=== PATIENT | female | born 1950 | race Caucasian/White ===

== ENCOUNTER → 2019-03-21 09:57 | Outpatient (CLI) | payer OTHER, SELFPAY ==
[2019-03-21 11:23] LABS: Alanine Aminotransferase 19 IU/L (9-52); Albumin 4.9 g/dL (3.5-5.0); Albumin Globulin Ratio 1.6 (1.0-2.8); Alkaline Phosphatase 65 U/L (38-126); Aspartate Aminotransferase 26 IU/L (14-36); Bilirubin Total 0.5 mg/dL (0.2-1.3); Bilirubin Unconjugated 0.3 mg/dL (0.0-1.1); Cholesterol 210 mg/dL (140-199); HDL Cholesterol 71 mg/dL (40-60); HEMOLYSIS < 15 (0-50); LDL Cholesterol Calculated 117 mg/dL (<100); Total Protein 7.9 g/dL (6.3-8.2); Triglycerides 109 mg/dL (35-150)
== END ==
PROVIDERS: Visit Provider Nurse Practitioner
DX: E78.5 Hyperlipidemia, unspecified (principal); Z79.899 Other long term (current) drug therapy
CPT/HCPCS: 36415; 80061; 80076

== ENCOUNTER → 2019-07-12 12:46 | Outpatient (CLI) | payer OTHER, SELFPAY ==
--- NOTE | 2019-07-12 12:50 | DI.NM.S_ITS ---
PROCEDURE: NM HIDA WITH CCK PHARMACEUTICAL: 5.2 mCi Tc-99m mebrofenin IV; 1.2 mcg CCK IV. INDICATIONS: LLQ pain TECHNIQUE: Following intravenous administration of Tc-99m mebrofenin, sequential anterior abdominal images were obtained. To evaluate the contractile response of the gallbladder in response to Cholecystokinin (CCK), sincalide (0.02 ?g/kg) was administered by slow intravenous infusion approximately 60 minutes after the administration of the radiopharmaceutical. Sequential imaging was continued for 30 minutes after the start of CCK infusion. Gallbladder ejection fraction was calculated. COMPARISON: None. FINDINGS: Biliary scan: There is normal tracer uptake and excretion by the liver. There is normal visualization of the intrahepatic ducts, common bile duct, and gallbladder. There is normal tracer transit into the duodenum. CCK stimulation: There is abnormally reduced contractile response of the gallbladder to CCK infusion. The calculated gallbladder ejection fraction is only 7%; normal values are above 35%. It has been shown that any patient abdominal pain after CCK administration is related to the rate of CCK injection, rather than to any underlying gallbladder disease (Clinical Nuclear Medicine 2012; 37: 63-70. Journal of Nuclear Medicine 2014; 55: 1-9). IMPRESSION: Abnormally reduced gallbladder ejection fraction of only 7% with lower limits of normal at 35%. However, normal hepatocellular uptake and excretion of isotope through the bile ducts is observed. Dictated by: Italo Calderon M.D. on 07/12/2019 at 16:16 Approved by: Italo Calderon M.D. on 07/12/2019 at 16:17
== END ==
PROVIDERS: PCP Nurse Practitioner; Visit Provider Nurse Practitioner
DX: R10.32 Left lower quadrant pain (principal)
CPT/HCPCS: 78227; A9537; J2805

== ENCOUNTER → 2019-08-01 07:30 | Outpatient (CLI) | payer OTHER, SELFPAY ==
[2019-08-01 08:28] LABS: Cholesterol 214 mg/dL (140-199); HDL Cholesterol 66 mg/dL (40-60); LDL Cholesterol Calculated 120 mg/dL (<100); Triglycerides 142 mg/dL (35-150)
== END ==
PROVIDERS: PCP Nurse Practitioner; Visit Provider Nurse Practitioner
DX: E78.5 Hyperlipidemia, unspecified (principal)
CPT/HCPCS: 36415; 80061

== ENCOUNTER 2019-08-08 06:23 | Day surgery (SDC) | payer OTHER, SELFPAY ==
[2019-08-03 13:16] VITALS: BMI 24.7
[2019-08-08] VITALS (12 sets, daily range): BP systolic 112–144; BP diastolic 71–87; PULSE 49–76; RESP 12–24; TEMP 35.8–37.2; O2SAT 93–100; BMI 24.7
--- NOTE | 2019-08-08 | PATH_ITS ---
[facility] Accession Number: [id number] . 01 Material submitted: . gallbladder - GALLBLADDER . 02 Diagnosis: Gallbladder, Cholecystectomy: Minimal chronic cholecystitis. No evidence of neoplasm. MRV 08/10/2019 0949 Local . 02 Electronically signed: . Mk Elkins MD, PhD, Pathologist NPI- [id number] . 01 Gross description: . Received in formalin, labeled gallbladder, is an intact gallbladder (length-7.3 cm, diameter-2.7 cm) with green smooth and shiny serosa and a patent cystic duct. A possible lymph node (0.3 x 0.1 x 0.1 cm) is identified. The lumen contains green watery bile. No calculi are present. The mucosa is green smooth and flat. The wall is up to 0. 1 cm thick. No nodules, masses or lesions are identified. Section code: (A1) cystic duct resection margin and two serial sections from the body; (A2) two longitudinal sections from the fundus; (A3) one intact possible lymph node. ([id number]) /[facility] 08/09/2019 1605 Local . 02 Pathologist provided ICD-10: K82.8, K81.1 . 02 CPT . 210205 Performed at: [address] [facility] [address], [place], [place] [id number] MD Zac Galeano MD Phone: [phone] Performed at: 02 [facility] [address] [place], [place] [id number] MD Landy Forrester MD Phone: [phone]
[2019-08-08] MEDS: LACTATED RINGERS 1,000 ML 42 ML IV (07:30)
--- NOTE | 2019-08-08 07:34 | PM.PREOP ---
Pre-operative Note Interval Note History & Physical reviewed/Exam performed by Physician: Yes Changes to H&P: No
--- NOTE | 2019-08-08 08:30 | SUR.OPER ---
Supine on padded OR bed, head on pillow, safety belt at thigh, left arm and Right arm secured on padded arm oard <90 degrees abduction. Legs uncrossed. Padded footboard in place. Tape over blanket to secure lower legs.
[2019-08-08] MEDS: CEFAZOLIN 2 GM/100 ML FROZ.PIGGY IV (08:38)
[2019-08-08] MEDS: BUPIVACAINE 0.25% (PF) VIAL 30 ML INJ (08:39)
[2019-08-08] MEDS: ACETAMINOPHEN 325 MG TABLET PO ×3 (09:27→10:55)
--- NOTE | 2019-08-08 09:49 | SUR.PHASEII ---
Patient reported 7-9/10 upper abd pain. Declined Ibuprofen or narcotic. Tylenol offered and given. Call light within reach.
--- NOTE | 2019-08-08 10:47 | SUR.PHASEII ---
Patient reported 7/10 abd pain, requested another tylenol and agreed to Toradol. Dr. Dunne notified. VVO for another 325mg of Tylenol and 30mg Toradol obtained.
[2019-08-08] MEDS: KETOROLAC 30 MG/ML VIAL IV (10:54)
[2019-08-08] MEDS: ONDANSETRON 4 MG/2 ML INJ IV (10:58)
[2019-08-08] MEDS: OXYCODONE IR 5 MG TABLET PO (11:39)
--- NOTE | 2019-08-08 11:40 | SUR.PHASEII ---
pt reported nausea resolved. Tolerated crackers. Requested Oxycodone which was provided.
--- NOTE | 2019-08-08 12:53 | PM.OP.1 ---
Operative Date/Time/Diagnoses Date of procedure: 08/08/19 Time of procedure: 12:53 Pre-op diagnosis: Biliary dyskinesia Post-op diagnosis: same Procedure & Clinicians Procedure: Laparoscopic cholecystectomy Same procedure as scheduled: Yes Indications: 68-year-old female history of biliary dyskinesia is demonstrated by a HIDA scan showing an ejection fraction of 7% elects for a laparoscopic cholecystectomy. Surgeon: Alin Hawley Click Yes if Unassisted: Yes Anesthesia Type: General Operative Notes Findings: No evidence of acute cholecystitis Specimen(s): other (Gallbladder) Estimated Blood Loss (mL): 15 Procedure in detail: The patient was brought to the operating room placed supine on the table. Bilateral lower extremity compression devices were applied. General anesthesia was induced and they were intubated with an endotracheal tube. They received 2 g of Ancef prior to skin incision. A time-out was performed to ensure the correct patient procedure necessary equipment within the operating room. They were then prepped and draped in the usual sterile fashion. Infraumbilical incision was made the umbilical stalk was grasped and elevated and the fascia was sharply incised. The abdomen was entered atraumatically. A 10 mm trocar was then placed into the abdomen. Pneumoperitoneum was established. The laparoscopic camera was inserted into the abdomen inspection was made that demonstrated no evidence of injury upon entry. We then placed our working ports the 1st 5 mm port high in the epigastrium and then 2 in the right upper quadrant. The gallbladder was grasped and retracted over the liver and grasped laterally by the fundus. The triangle of Calot was exposed. There was no evidence of acute cholecystitis. The triangle of calot was then skeletonized using hook electrocautery and demonstrated the cystic duct clearly entering the gallbladder the cystic artery and the liver and in the background. With the critical view of safety established the cystic duct was clipped twice proximally and once distally and then sharply divided and the cystic artery was taken in the same fashion. Next the gallbladder was removed from the liver bed using electro cautery. The liver bed was then inspected for hemostasis and this was achieved. The abdomen was irrigated with sterile saline and inspection was made that showed the clips in good position. The specimen was removed using Endo-Catch. The abdomen was desufflated. The the fascia of the umbilicus was closed with 0 Vicryl in a [id number] fashion. Skin incisions were irrigated and closed with 4-0 Monocryl. The wounds were sealed with Dermabond. Patient emerged from general anesthesia was extubated and transferred to the postoperative care unit missed stable condition. The sponge and instrument count at the end of the operation was correct. Complications: none Post-operative Condition: stable Disposition: same day surgery
--- NOTE | 2019-08-08 15:30 | SUR.PHASEII ---
1450 Patient's son arrived. Discharge instructions reviewed and given to her son, along with the prescription.
== END 2019-08-08 15:03 | disposition home or self-care (01) ==
PROVIDERS: PCP Nurse Practitioner; Visit Provider Surgery
PROC: 0FT44ZZ Resection of Gallbladder, Percutaneous Endoscopic Approach (ICD-10-PCS; CPT 47562; principal; 2019-08-08 07:45)
DX: K81.1 Chronic cholecystitis (principal)
CPT/HCPCS: 47562; J0690; J1100; J1885; J2405; J2704; J3010

== ENCOUNTER → 2019-09-12 14:52 | Outpatient (CLI) | payer OTHER, SELFPAY ==
--- NOTE | 2019-09-12 14:54 | DI.MG.S_ITS ---
BILATERAL DIGITAL SCREENING MAMMOGRAM 3D/2D WITH CAD: 09/12/2019 CLINICAL: Routine screening. Family history of breast cancer. Comparison is made to exams dated: 08/19/2018 mammogram, 04/21/2017 mammogram, and 11/07/2014 mammogram - [facility]. There are scattered fibroglandular elements in both breasts. Current study was also evaluated with a Computer Aided Detection (CAD) system. No significant masses, calcifications, or other findings are seen in either breast. There has been no significant interval change. IMPRESSION: NEGATIVE There is no mammographic evidence of malignancy. A 1 year screening mammogram is recommended. This exam was interpreted at Station ID: [id number]. NOTE: For mammograms, a report in lay terms will be sent to the patient. Approximately 15% of breast malignancies will not be visualized mammographically. In the management of a palpable breast mass, a negative mammogram must not discourage biopsy of a clinically suspicious lesion. Electronically Signed By: Sanjuanita ledbetter/shahnaz:09/13/2019 17:44:04 letter sent: Normal Exam ACR BI-RADS Category 1: Negative [id number]
== END ==
PROVIDERS: PCP Nurse Practitioner; Referring Provider Nurse Practitioner; Visit Provider Nurse Practitioner
DX: Z12.31 Encounter for screening mammogram for malignant neoplasm of breast (principal); Z80.3 Family history of malignant neoplasm of breast; Z13.820 Encounter for screening for osteoporosis; M85.852 Other specified disorders of bone density and structure, left thigh; Z78.0 Asymptomatic menopausal state
CPT/HCPCS: 77063; 77067; 77080

== ENCOUNTER → 2020-06-26 07:14 | Outpatient (CLI) | payer OTHER, SELFPAY ==
[2020-06-26 08:21] LABS: Alanine Aminotransferase 19 IU/L (<35); Albumin 4.4 g/dL (3.5-5.0); Albumin Globulin Ratio 1.6 (1.0-2.8); Alkaline Phosphatase 65 U/L (38-126); Aspartate Aminotransferase 26 IU/L (14-36); Bilirubin Total 0.5 mg/dL (0.2-1.3); Bilirubin Unconjugated 0.5 mg/dL (0.0-1.1); Cholesterol 204 mg/dL (140-199); Globulin 2.8 g/dL (1.7-4.1); HDL Cholesterol 63 mg/dL (40-60); HEMOLYSIS < 15 (0-50); LDL Cholesterol Calculated 102 mg/dL (<100); Total Protein 7.2 g/dL (6.3-8.2); Triglycerides 197 mg/dL (35-150)
== END ==
PROVIDERS: PCP Nurse Practitioner; Referring Provider Nurse Practitioner; Visit Provider Nurse Practitioner
DX: E78.5 Hyperlipidemia, unspecified (principal); Z79.899 Other long term (current) drug therapy
CPT/HCPCS: 36415; 80061; 80076

== ENCOUNTER → 2020-12-28 15:03 | Outpatient (CLI) | payer MEDICARE, OTHER, SELFPAY ==
--- NOTE | 2020-12-28 15:06 | DI.MG.S_ITS ---
BILATERAL DIGITAL SCREENING MAMMOGRAM 3D/2D WITH CAD: 12/28/2020 CLINICAL: Routine screening. Family history of breast cancer. Comparison is made to exams dated: 09/12/2019 mammogram - [facility], 08/19/2018 mammogram, and 04/21/2017 mammogram - [facility]. There are scattered fibroglandular elements in both breasts. Current study was also evaluated with a Computer Aided Detection (CAD) system. No significant masses, calcifications, or other findings are seen in either breast. There has been no significant interval change. IMPRESSION: NEGATIVE There is no mammographic evidence of malignancy. A 1 year screening mammogram is recommended. This exam was interpreted at Station ID: [id number]. NOTE: For mammograms, a report in lay terms will be sent to the patient. Approximately 15% of breast malignancies will not be visualized mammographically. In the management of a palpable breast mass, a negative mammogram must not discourage biopsy of a clinically suspicious lesion. Electronically Signed By: Zac quiñonez/shahnaz:12/31/2020 08:10:36 letter sent: Normal Exam ACR BI-RADS Category 1: Negative 3341F
== END ==
PROVIDERS: PCP Nurse Practitioner; Referring Provider Nurse Practitioner; Visit Provider Nurse Practitioner
DX: Z12.31 Encounter for screening mammogram for malignant neoplasm of breast (principal)
CPT/HCPCS: 77063; 77067

== ENCOUNTER → 2022-03-09 09:16 | Outpatient (CLI) | payer MEDICARE, OTHER, SELFPAY ==
--- NOTE | 2022-03-09 09:20 | DI.MG.S_ITS ---
BILATERAL DIGITAL SCREENING MAMMOGRAM 3D/2D WITH CAD: 03/09/2022 CLINICAL: Routine screening. Family history of breast cancer. Comparison is made to exams dated: 12/28/2020 mammogram, 09/12/2019 mammogram - [facility], and 08/19/2018 mammogram - [facility]. There are scattered fibroglandular elements in both breasts. Current study was also evaluated with a Computer Aided Detection (CAD) system. No significant masses, calcifications, or other findings are seen in either breast. There has been no significant interval change. IMPRESSION: NEGATIVE There is no mammographic evidence of malignancy. A 1 year screening mammogram is recommended. Based on the Tyrer Cuzick model (a risk assessment model) the patient's lifetime risk is 10.5% and her 10 year risk is 7.9%. According to the ACR, ACS, and NCCN guidelines, an annual breast MRI exam along with mammogram is recommended if the patient's lifetime risk is 20% or greater. This exam was interpreted at Station ID: [id number]. NOTE: For mammograms, a report in lay terms will be sent to the patient. Approximately 15% of breast malignancies will not be visualized mammographically. In the management of a palpable breast mass, a negative mammogram must not discourage biopsy of a clinically suspicious lesion. Electronically Signed By: John Min M.D., jr/shahnaz:03/09/2022 10:16:19 letter sent: Normal Exam ACR BI-RADS Category 1: Negative [id number]
[2022-03-09 11:37] LABS: Alanine Aminotransferase 13 IU/L (<35); Albumin 4.4 g/dL (3.5-5.0); Albumin Globulin Ratio 1.3 (1.0-2.8); Alkaline Phosphatase 71 U/L (38-126); Aspartate Aminotransferase 22 IU/L (14-36); BUN Creatinine Ratio 21.3 (6-22); Bilirubin Total 0.2 mg/dL (0.2-1.3); Blood Urea Nitrogen 20 mg/dL (7-17); Calcium 9.2 mg/dL (8.4-10.2); Carbon Dioxide 28 mmol/L (22-32); Chloride 106 mmol/L (98-107); Cholesterol 278 mg/dL (140-199); Estimated Glomerular Filt Rate > 60 mL/min (>60); Globulin 3.3 g/dL (1.7-4.1); Glucose 96 mg/dL (80-110); HDL Cholesterol 51 mg/dL (40-60); HEMOLYSIS < 15 (0-50); LDL Cholesterol Calculated 204 mg/dL (<100); Potassium 4.5 mmol/L (3.4-5.1); Sodium 142 mmol/L (137-145); Total Protein 7.7 g/dL (6.3-8.2); Triglycerides 115 mg/dL (35-150)
[2022-03-09 17:38] LABS: Hep C Virus Ab w/Reflex Quant NEGATIVE s/c (NEGATIVE)
== END ==
PROVIDERS: PCP Nurse Practitioner; Referring Provider Nurse Practitioner; Visit Provider Nurse Practitioner
DX: Z12.31 Encounter for screening mammogram for malignant neoplasm of breast (principal); Z80.3 Family history of malignant neoplasm of breast; Z13.820 Encounter for screening for osteoporosis; M85.89 Other specified disorders of bone density and structure, multiple sites; Z78.0 Asymptomatic menopausal state; E78.2 Mixed hyperlipidemia; Z11.59 Encounter for screening for other viral diseases; Z92.23 Personal history of estrogen therapy; Z79.899 Other long term (current) drug therapy; Z85.828 Personal history of other malignant neoplasm of skin
CPT/HCPCS: 36415; 77063; 77067; 77080; 80053; 80061; 86803

== ENCOUNTER → 2022-03-10 10:29 | Outpatient (CLI) | payer MEDICARE, OTHER, SELFPAY ==
[2022-03-11 07:47] LABS: Fecal Immunochemical Test Negative (Negative)
== END ==
PROVIDERS: PCP Nurse Practitioner; Referring Provider Nurse Practitioner; Visit Provider Nurse Practitioner
DX: Z12.11 Encounter for screening for malignant neoplasm of colon (principal)
CPT/HCPCS: 82274